=== PATIENT | female | born 1970 ===

== ENCOUNTER 2022-05-12 08:47 | Day surgery (SDC) | payer OTHER ==
[~2022-05-12] VITALS: Ht 167.6 cm; Wt 79.8 kg
[~2022-05-12 08:47] MED LIST: ALLEGRA ALLERG180 MG PO; AMBIEN10 MG PO; ATIVAN0.5 M1 PO; BUSPIRONE HCL15 MG PO; LEXAPRO5 MG PO; ZYRTEC10 MG PO
== END 2022-05-12 21:20 | disposition home or self-care (01) ==
LOC: CIR.AMB 08:47
PROVIDERS: ATTEND Colon & Rectal Surgery
DX: K60.1 Chronic anal fissure (principal); Z20.822 Contact with and (suspected) exposure to COVID-19; K64.8 Other hemorrhoids; Z86.16 Personal history of COVID-19; M19.90 Unspecified osteoarthritis, unspecified site